=== PATIENT | female | born 1985 | race Hispanic/Latino ===

== ENCOUNTER 2018-07-20 13:02 | Outpatient (CLI) | payer MEDICAID ==
--- NOTE | 2018-07-20 15:46 | ULT ---
COMPLETE ULTRASOUND INCLUDING TRANSABDOMINAL, TRANSVAGINAL, AND VASCULAR DUPLEX WITH COLOR AND SPECTRAL DOPPLER IMAGING: History: 33-year-old female with history of right sided pelvic pain for one month. FINDINGS: The uterus measures 10.2 x 5.3 x 6.0 cm. Endometrium is 0.8 cm. The right ovary measures 3.4 x 3.6 x 3.5 cm containing a 1.4 x 2.1 x 2.5 cm cyst. There is a poorly circumscribed area of altered echogeni city within the posterior uterine fundus measuring 3.1 x 3.2 x 4.6 cm which certainly could represent a uterine fibroid. Vascular flow is documented to both ovaries. No evidence for ovarian torsion. No abscess or abnormal fluid collection. IMPRESSION: Somewhat poorly circumscribed solid echogenic mass in the posterior fundus, evidence for a uterine fi broid. Right ovarian cyst/follicle. No evidence for other significant acute process. POS: [facility]
== END 2018-07-20 13:03 | disposition home or self-care (01) ==
LOC: SCSULT 13:02
PROVIDERS: ATTEND Nurse Practitioner Women's Health
DX: R10.2 Pelvic and perineal pain (principal); D25.9 Leiomyoma of uterus, unspecified; N83.201 Unspecified ovarian cyst, right side
CPT/HCPCS: 76856